=== PATIENT | male | born 1950 | race Caucasian/White ===

== ENCOUNTER 2018-05-26 16:18 | Emergency (ER) | payer MEDICARE ==
[~2018-05-26] VITALS: Ht 170.2 cm; Wt 90.7 kg
[2018-05-26] MEDS ORDERED: LIDOCAINE HCL 1% LOCAL INJ 20 ML VIAL INJ ONE (16:45)
[2018-05-26] MEDS ORDERED: BACITRACIN ZINC 0.9GM TP ONE (17:30)
== END 2018-05-26 17:23 | disposition home or self-care (01) ==
LOC: FSED 16:18
DX: S61.211A Laceration without foreign body of left index finger without damage to nail, initial encounter (principal); W29.3XXA Contact with powered garden and outdoor hand tools and machinery, initial encounter; Y92.008 Other place in unspecified non-institutional (private) residence as the place of occurrence of the external cause; I10 Essential (primary) hypertension
CPT/HCPCS: 12001; 99284; J2001

== ENCOUNTER 2021-09-20 16:20 | Emergency (ER) | payer MEDICARE ==
[~2021-09-20] VITALS: Ht 172.7 cm; Wt 88.9 kg
[2021-09-20] MEDS ORDERED: ACETAMINOPHEN500 MG PO ×2 (17:33→18:09)
[2021-09-20] MEDS ORDERED: IBUPROFEN200 MG PO ×2 (17:33→18:09)
[2021-09-20] MEDS ORDERED: PREDNISONE50 MG PO ×2 (17:33→18:09)
[2021-09-20 18:15] VITALS: BP 119/83
== END 2021-09-20 18:15 | disposition home or self-care (01) ==
LOC: FSED 16:24
DX: M54.2 Cervicalgia (principal); M47.812 Spondylosis without myelopathy or radiculopathy, cervical region; I10 Essential (primary) hypertension; E66.01 Morbid (severe) obesity due to excess calories; Z85.89 Personal history of malignant neoplasm of other organs and systems
CPT/HCPCS: 72040; 99283

== ENCOUNTER → 2023-03-08 | Day surgery (SDC) | payer MEDICARE, OTHER ==
[2023-03-02 11:57] LABS: BASOPHILS # (AUTO) 0.1 (0.0-0.1); BASOPHILS % 0.8 % (0.0-1.0); EOSINOPHILS # (AUTO) 0.4 (0.0-0.4); EOSINOPHILS % 4.8 % (0.0-6.0); HEMATOCRIT 50.9 % (38.2-49.6); HEMOGLOBIN 16.8 g/dL (14.0-18.0); LYMPHOCYTES % 26.9 % (18.0-39.1); MEAN CORPUSCULAR HEMOGLOBIN 29.9 pg (28-32); MEAN CORPUSCULAR VOLUME 90.6 fL (81-99); MONOCYTES # (AUTO) 0.8 (0.2-0.8); MONOCYTES % 9.9 % (4.4-11.3); NEUTROPHILS # (AUTO) 4.3 (2.1-6.9); NEUTROPHILS % 57.3 % (38.7-80.0); PLATELET COUNT 221 x10e3/uL (140-360); RED BLOOD COUNT 5.62 x10e6/uL (4.3-5.7); RED CELL DISTRIBUTION WIDTH 12.6 % (11.7-14.4); WHITE BLOOD COUNT 7.56 x10e3/uL (4.8-10.8)
[2023-03-02 12:11] LABS: ANION GAP 12.3 mmol/L (8-16); CALCIUM 9.1 mg/dL (8.4-10.2); CREATININE, SERUM 0.91 mg/dL (0.72-1.25); POTASSIUM 4.3 mmol/L (3.5-5.1)
[~2023-03-08] MED LIST: ACETAMINOPHEN500 MG PO; ATORVASTATIN CA20 MG PO; BALANCED SALT SOLN (OPTH) 15 ML BTL IO ONE; BUPIVACAINE HC 0.75% PF 10ML VIAL INJ ONE; CYCLOPENTOLATE HCL 2% OPTH SOLN 2 ML BTL OP ONE; ELIQUIS5 MG PO; EPINEPHRINE HCL 1:1000 1ML 1 MG/ML AMP ONE; FINASTERIDE5 MG PO; FLOMAX0.4 MG PO; IBUPROFEN200 MG PO; LACTATED RINGER'S 1,000 ML ONE; LIDOCAINE 2% /EPINEPHRINE 20 ML SDV INJ ONE; LIDOCAINE HCL-PF 4% 40 MG/1 ML 5ML AMP ONE; METOPROLOL SUCC50 MG PO; MOXIFLOXACIN HCL(OPTH) 3 ML BTL ONE; NEOMYCIN/POLYMYXIN/DEX (OPTH) 3.5 GM TUBE ONE; PHENYLEPHRINE HCL 2 ML DROPS ONE; PILOCARPINE HCL(OPTH) 15 ML LIQD ONE; POVIDONE IODINE 5% (OPTH) 30 ML BTL ONE; PREDNISONE50 MG PO
[2023-03-08 10:16] VITALS: TEMP 97
[2023-03-08 10:36] VITALS: BP 130/86; PULSE 76; RESP 18; O2SAT 99
== END | disposition home or self-care (01) ==
LOC: OR 07:01
PROVIDERS: ATTEND Ophthalmology
DX: H25.12 Age-related nuclear cataract, left eye (principal); I10 Essential (primary) hypertension; I48.91 Unspecified atrial fibrillation; E78.5 Hyperlipidemia, unspecified; E66.01 Morbid (severe) obesity due to excess calories; N40.0 Benign prostatic hyperplasia without lower urinary tract symptoms; Z01.810 Encounter for preprocedural cardiovascular examination; Z01.812 Encounter for preprocedural laboratory examination; Z79.02 Long term (current) use of antithrombotics/antiplatelets; Z79.899 Other long term (current) drug therapy; Z86.73 Personal history of transient ischemic attack (TIA), and cerebral infarction without residual deficits
CPT/HCPCS: 36415; 66984; 80048; 85025; 93005; J0171; J2001; J7121

== ENCOUNTER → 2023-08-23 | Day surgery (SDC) | payer MEDICARE, OTHER ==
[2023-08-20 13:33] LABS: BASOPHILS # (AUTO) 0.1 (0.0-0.1); BASOPHILS % 0.7 % (0.0-1.0); EOSINOPHILS # (AUTO) 0.7 (0.0-0.4); HEMATOCRIT 50.3 % (38.2-49.6); HEMOGLOBIN 16.9 g/dL (14.0-18.0); LYMPHOCYTES # (AUTO) 2.1 (1.0-3.2); LYMPHOCYTES % 23.9 % (18.0-39.1); MEAN CORPUSCULAR HEMOGLOBIN 30.2 pg (28-32); MEAN CORPUSCULAR HGB CONC 33.6 g/dL (31-35); MEAN CORPUSCULAR VOLUME 89.8 fL (81-99); MONOCYTES # (AUTO) 0.8 (0.2-0.8); MONOCYTES % 9.3 % (4.4-11.3); NEUTROPHILS # (AUTO) 5.2 (2.1-6.9); NEUTROPHILS % 57.8 % (38.7-80.0); PLATELET COUNT 228 x10e3/uL (140-360); RED CELL DISTRIBUTION WIDTH 13.1 % (11.7-14.4); WHITE BLOOD COUNT 8.96 x10e3/uL (4.8-10.8)
[~2023-08-23] MED LIST changes: +FENTANYL CITRATE/PF 100MCG/2 ML INJ ONE; -LACTATED RINGER'S 1,000 ML ONE; +LIDOCAINE HCL 2% LOCAL INJ 5 ML SDV VIAL INJ ONE; +MIDAZOLAM HCL 2 MG/2 ML VIAL ONE; -MOXIFLOXACIN HCL(OPTH) 3 ML BTL ONE; -NEOMYCIN/POLYMYXIN/DEX (OPTH) 3.5 GM TUBE ONE; -PILOCARPINE HCL(OPTH) 15 ML LIQD ONE; +PROPOFOL IV EMULSION 10 MG/ML 20 ML VIAL ONE; +TETRACAINE HCL 0.5% OPTH SOLN 4 ML BTL ONE; +VITAMIN D250 MCG PO
[2023-08-23] MEDS: LACTATED RINGER'S 1,000 ML ONE (10:42)
[2023-08-23 13:23] VITALS: TEMP 97.4
[2023-08-23 13:38] VITALS: BP 116/80; PULSE 80; RESP 16; O2SAT 96
== END | disposition home or self-care (01) ==
LOC: OR 06:35
PROVIDERS: ATTEND Ophthalmology
DX: H25.11 Age-related nuclear cataract, right eye (principal); Z01.812 Encounter for preprocedural laboratory examination; I10 Essential (primary) hypertension; I48.91 Unspecified atrial fibrillation; E78.5 Hyperlipidemia, unspecified; E66.9 Obesity, unspecified; H91.90 Unspecified hearing loss, unspecified ear; Z79.02 Long term (current) use of antithrombotics/antiplatelets; Z79.899 Other long term (current) drug therapy; Z86.73 Personal history of transient ischemic attack (TIA), and cerebral infarction without residual deficits
CPT/HCPCS: 36415; 85025; J0171; J2001; J2250; V2632